=== PATIENT | female | born 2000 | race African-American/Black ===

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

== ENCOUNTER 2019-05-30 00:23 | Emergency (ER) | payer MEDICAID ==
[~2019-05-30] VITALS: Ht 162.6 cm; Wt 108.9 kg
[2019-05-30 01:00] VITALS: BP_SYST 135
[2019-05-30] MEDS ORDERED: ACETAMINOPHEN 325 MG TABLET PO ONE (01:45)
[2019-05-30 02:20] VITALS: BP_SYST 132
== END 2019-05-30 02:20 | disposition home or self-care (01) ==
LOC: SED 00:23
DX: S09.90XA Unspecified injury of head, initial encounter (principal); S63.641A Sprain of metacarpophalangeal joint of right thumb, initial encounter; J45.909 Unspecified asthma, uncomplicated; Z90.89 Acquired absence of other organs; Z88.0 Allergy status to penicillin; Z88.8 Allergy status to other drugs, medicaments and biological substances; Z79.899 Other long term (current) drug therapy; V43.52XA Car driver injured in collision with other type car in traffic accident, initial encounter; Y93.89 Activity, other specified; Y92.89 Other specified places as the place of occurrence of the external cause; Y99.8 Other external cause status
CPT/HCPCS: 81025; 99283

== ENCOUNTER 2019-08-06 15:29 | Emergency (ER) | payer MEDICAID ==
[~2019-08-06] VITALS: Ht 162.6 cm; Wt 108.9 kg
[2019-08-06 15:48] VITALS: BP_SYST 151
[2019-08-06] MEDS ORDERED: DEXAMETHASONE SOD PHOSPHATE 10 MG/ML VIAL IM ONE (16:30)
[2019-08-06] MEDS ORDERED: KETOROLAC TROMETHAMINE 60 MG/2 ML VIAL IM ONE (16:30)
[2019-08-06 17:05] VITALS: BP_SYST 129
== END 2019-08-06 17:05 | disposition home or self-care (01) ==
LOC: SED 15:29
DX: I73.00 Raynaud's syndrome without gangrene (principal); G56.02 Carpal tunnel syndrome, left upper limb; R03.0 Elevated blood-pressure reading, without diagnosis of hypertension; J45.909 Unspecified asthma, uncomplicated; Z86.2 Personal history of diseases of the blood and blood-forming organs and certain disorders involving the immune mechanism; Z88.0 Allergy status to penicillin; Z88.1 Allergy status to other antibiotic agents; Z88.8 Allergy status to other drugs, medicaments and biological substances
CPT/HCPCS: 99282; J1100; J1885